=== PATIENT | male | born 1965 ===

== ENCOUNTER 2016-11-26 19:28 | Emergency (ER) | payer MEDICARE, MEDICAID ==
[2016-11-26 19:44] VITALS: BMI 23.6
[2016-11-26 19:48] VITALS: BP 156/87; TEMP 97.8
[2016-11-26 20:52] LABS: ADD MANUAL DIFF? NO
--- NOTE | 2016-11-26 21:01 | ED PDOC ---
Arrival/HPI - General Chief Complaint: Headache Time Seen by Provider: 11/26/16 19:51 Historian: Patient - History of Present Illness Narrative History of Present Illness (Text): 11/26/16 20:00 Gerson Lama is a 51 year old male, whose past medical history includes alcoholic cirrhosis with chronic ascites, liver transplant in 2016, hepatitis C , and nephrolithiasis, presents to the emergency department complaining of headache discomfort for past 2 weeks. States that headache is predominantly on the left side, and has been taking Tylenol for minimal symptomatic relief. Denies any fever, chills, dizziness, chest pain, shortness of breath, nausea, vomiting, diarrhea, or any other complaints at this time. Time/Duration: Other (2 weeks ) Severity Level: Mild Activities at Onset: Light Past Medical History - Provider Review Nursing Documentation Reviewed: Yes - Infectious Disease Hx of Infectious Diseases: None - Tetanus Immunization Tetanus Immunization: Unknown - Reproductive Currently : No - Cardiac Hx Cardiac Disorders: Yes Hx Heart Murmur: Yes - Pulmonary Hx Respiratory Disorders: Yes Hx Pneumonia: Yes - Neurological Hx Neurological Disorder: No - HEENT Hx HEENT Disorder: Yes Other/Comment: glasses - Renal Hx Renal Disorder: Yes Hx Neurogenic Bladder: Yes Hx Renal Failure: No - Endocrine/Metabolic Hx Endocrine Disorders: No - Hematological/Oncological Hx Blood Disorders: Yes Hx Anemia: Yes (blood transfusion) Hx Cirrhosis: Yes Hx Hepatitis C: Yes (hx of) Other/Comment: liver transplant in feb 2016 - Integumentary Hx Dermatological Disorder: No - Musculoskeletal/Rheumatological Hx Musculoskeletal Disorders: Yes Hx Arthritis: Yes Hx Back Pain: Yes Hx Falls: No Hx Unsteady Gait: Yes - Gastrointestinal Hx Gastrointestinal Disorders: Yes Hx Diverticulitis: Yes Hx Gall Bladder Disease: Yes (cholecystectomy) Hx Gastroesophageal Reflux: Yes Hx Liver Failure: Yes - Genitourinary/Gynecological Hx Genitourinary Disorders: Yes Hx Hematuria: Yes - Psychiatric Hx Psychophysiologic Disorder: Yes Hx Anxiety: Yes Hx Depression: Yes Hx Substance Use: No - Surgical History Hx Cholecystectomy: Yes Hx Orthopedic Surgery: Yes (left hip sx/ ankle sx) Other/Comment: RLQ hernia. Liver transplant. - Anesthesia Hx Anesthesia: Yes Hx Anesthesia Reactions: No Hx Malignant Hyperthermia: No - Suicidal Assessment Feels Threatened In Home Enviroment: No Family/Social History - Physician Review Nursing Documentation Reviewed: Yes Family/Social History: No Known Family HX Smoking Status: Former Smoker Hx Alcohol Use: No Hx Substance Use: No Substance used: cocaine Hx Substance Use Treatment: No Allergies/Home Meds Allergies/Adverse Reactions: Allergies diphenhydramine HCl [From Benadryl] Allergy (Verified 11/26/16 19:43) ITCHING Penicillins Allergy (Verified 11/26/16 19:43) ITCHING seafood Allergy (Uncoded 11/26/16 19:43) ANAPHYLAXIS Home Medications: Home Meds Medication Instructions Recorded Confirmed Ascorbic Acid [Vitamin C] 1 tab PO DAILY 11/26/16 11/26/16 Calcium Carbonate/Vitamin D3 1 tab PO BID 11/26/16 11/26/16 [[place] 500-Vit D3 200 Caplet] Magnesium Oxide [Magnesium] 400 mg PO DAILY 11/26/16 11/26/16 Multimineral/Multivitamin 1 tab PO DAILY 11/26/16 11/26/16 [Therapeutic-M Tab] Mycophenolate Mofetil [Cellcept] 750 mg PO BID 11/26/16 11/26/16 Sennosides [Senna] 2 tab PO HS 11/26/16 11/26/16 Tacrolimus [Prograf Cap] 5 mg PO BID 11/26/16 11/26/16 Tamsulosin [Flomax] 1 tab PO DAILY 11/26/16 11/26/16 Review of Systems - Physician Review All systems were reviewed & negative as marked: Yes - Review of Systems Constitutional: Normal. absent: Fatigue, Fevers Respiratory: Normal. absent: SOB, Cough, Sputum Cardiovascular: Normal. absent: Chest Pain, Palpitations Gastrointestinal: Normal. absent: Abdominal Pain, Diarrhea, Nausea, Vomiting Neurological: Headache. absent: Dizziness Physical Exam Vital Signs Reviewed: Yes Vital Signs Temp Pulse Resp BP Pulse Ox 11/26/16 19:48 97.8 F 94 H 19 156/87 H 98 Temperature: Afebrile Blood Pressure: Hypertensive Pulse: Regular Respiratory Rate: Normal Appearance: Positive for: Well-Appearing, Non-Toxic, Comfortable Pain Distress: None Mental Status: Positive for: Alert and Oriented X 3 - Systems Exam Head: Present: Atraumatic, Normocephalic Pupils: Present: PERRL Extroacular Muscles: Present: EOMI Conjunctiva: Present: Normal Mouth: Present: Moist Mucous Membranes Neck: Present: Normal Range of Motion Respiratory/Chest: Present: Clear to Auscultation, Good Air Exchange. No: Respiratory Distress, Accessory Muscle Use Cardiovascular: Present: Regular Rate and Rhythm, Normal S1, S2. No: Murmurs Abdomen: Present: Normal Bowel Sounds. No: Tenderness, Distention, Peritoneal Signs Upper Extremity: Present: Normal Inspection. No: Cyanosis, Edema Lower Extremity: Present: Normal Inspection. No: Edema Neurological: Present: GCS=15, CN II-XII Intact, Speech Normal, Motor Func Grossly Intact, Normal Sensory Function Skin: Present: Warm, Dry, Normal Color. No: Rashes Psychiatric: Present: Alert, Oriented x 3, Normal Insight, Normal Concentration Medical Decision Making ED Course and Treatment: 11/26/16 20:00 Impression: A 51 year old male who presents to the emergency department complaining of 2 week duration of left sided headache. Plan: -- CT Head -- Labs, Ammonia -- Reglan -- Reassess and disposition Progress Notes: 11/26/16 21:31 CT Head Without Intravenous Contrast Dictated and Authenticated by: Gera Sylvester MD FINDINGS: Brain: Minimal atrophy. No intracranial hemorrhage. No mass. No definite edema. Ventricles: No hydrocephalus. Bones/joints: No acute fracture. Soft tissues: Unremarkable. Sinuses: No acute sinusitis. Mastoid air cells: No mastoid effusion. Orbits: Unremarkable as visualized. IMPRESSION: 1. No acute intracranial abnormality. 2. Incidental/non-acute findings are described above. Re-evaluation Time: 23:00 Reassessment Condition: Re-examined, Improved - Lab Interpretations Lab Results: 11/26/16 20:43 11/26/16 20:43 Lab Results 11/26/16 21:10: Ammonia 18 11/26/16 20:43: Sodium 136, Potassium 4.4, Chloride 101, Carbon Dioxide 26, Anion Gap 13, BUN 20, Creatinine 0.8, Est GFR ( Amer) > 60, Est GFR (Non- Af Amer) > 60, Random Glucose 176 H, Calcium 9.3, Total Bilirubin 0.6, AST 28, ALT 27, Alkaline Phosphatase 97, Total Protein 7.1, Albumin 3.9, Globulin 3.2, Albumin/Globulin Ratio 1.2 11/26/16 20:43: WBC 6.2 D, RBC 3.58, Hgb 10.8 L, Hct 31.7 L, MCV 88.5, MCH 30.2 , MCHC 34.1, RDW 12.9, Plt Count 136, MPV 9.8, Gran % 83.5 H, Lymph % (Auto) 6.1 L, C[place]ay % (Auto) 7.2 H, Eos % (Auto) 3.2, Baso % (Auto) 0.0, Gran # 5.19, Lymph # 0.4 L, C[place]ay # 0.5, Eos # 0.2, Baso # 0.00 I have reviewed the lab results: Yes - RAD Interpretation Radiology Orders: 11/26/16 19:59 HEAD W/O CONTRAST [CT] Stat Rivet Sorter: Radiologist - Medication Orders Current Medication Orders: Discontinued Medications Metoclopramide HCl (Reglan) 10 mg IVP ONCE ONE Stop: 11/26/16 20:01 Last Admin: 11/26/16 20:47 Dose: 10 mg Oxycodone HCl (Oxycodone Immediate Release Tab) 5 mg PO STAT STA Stop: 11/26/16 21:14 Last Admin: 11/26/16 21:26 Dose: 5 mg Disposition/Present on Arrival - Present on Arrival Any Indicators Present on Arrival: No History of DVT/PE: No History of Uncontrolled Diabetes: No Urinary Catheter: No History of Decub. Ulcer: No History Surgical Site Infection Following: None - Disposition Have Diagnosis and Disposition been Completed?: Yes Diagnosis: Headache Disposition: HOME/ ROUTINE Disposition Time: 23:01 Condition: GOOD Discharge Instructions (ExitCare): Acute Headache (ED) Additional Instructions: follow up with pmd and neurology Referrals: Cornell Harris MD [Primary Care Provider] - Follow up with primary Ermias Francis MD [Staff Provider] - Follow up with primary Forms: Jongla (Korean)
[2016-11-26 21:04] LABS: EOS # 0.2 (0.0-0.7); EOS % 3.2 % (1.5-5.0); GRAN # 5.19 (1.4-6.5); GRAN % 83.5 % (50.0-68.0); HEMATOCRIT 31.7 % (42.0-52.0); LYMPH # 0.4 (1.2-3.4); LYMPH % 6.1 % (22.0-35.0); MEAN CELL VOLUME 88.5 fL (80.0-105.0); MEAN CORPUSCULAR HEMOGLOBIN 30.2 pg (25.0-35.0); MEAN CORPUSCULAR HGB CONC 34.1 g/dl (31.0-37.0); MEAN PLATELET VOLUME 9.8 fl (7.0-11.0); MONO # 0.5 (0.1-0.6); MONO % 7.2 % (1.0-6.0); PLATELET COUNT 136 10^3/uL (120.0-450.0); RED CELL DISTRIBUTION WIDTH 12.9 % (11.5-14.5); WHITE BLOOD COUNT 6.2 10^3/ul (4.5-11.0)
[2016-11-26 21:11] LABS: ALB/GLOB RATIO 1.2 (1.1-1.8); ALKALINE PHOSPHATASE 97 U/L (38-133); ALT/SGPT 27 U/L (7-56); AST/SGOT 28 U/L (15-59); BILIRUBIN,TOTAL 0.6 mg/dL (0.2-1.3); BLOOD UREA NITROGEN 20 mg/dL (7-21); CALCIUM 9.3 mg/dL (8.4-10.5); CARBON DIOXIDE 26 mmol/L (21-33); CHLORIDE 101 mmol/L (98-107); GFR AFRICAN-AMERICAN > 60; GLUCOSE,RANDOM 176 mg/dL (70-110); POTASSIUM 4.4 mmol/L (3.6-5.0); SODIUM 136 mmol/L (132-148); TOTAL PROTEIN 7.1 g/dL (5.8-8.3)
--- NOTE | 2016-11-26 21:12 | CT ---
EXAM: CT Head Without Intravenous Contrast CLINICAL HISTORY: 51 years old, male; Pain; Headache; Additional info: DURAN TECHNIQUE: Axial computed tomography images of the head/brain without intravenous contrast. This CT exam was performed using one or more of the following dose reduction techniques: automated exposure control, adjustment of the mA and/or kV according to patient size, and/or use of iterative reconstruction technique. COMPARISON: CT - HEAD W/O CONTRAST 04/29/2015 7:01:27 PM FINDINGS: Brain: Minimal atrophy. No intracranial hemorrhage. No mass. No definite edema. Ventricles: No hydrocephalus. Bones/joints: No acute fracture. Soft tissues: Unremarkable. Sinuses: No acute sinusitis. Mastoid air cells: No mastoid effusion. Orbits: Unremarkable as visualized. IMPRESSION: 1. No acute intracranial abnormality. 2. Incidental/non-acute findings are described above.
[2016-11-26] MEDS ORDERED: oxyCODONE 5 mg Immediate Release Tab PO STA (21:13)
[2016-11-26 23:13] VITALS: PULSE 96; RESP 18
[2016-11-26 23:16] VITALS: O2SAT 99
== END 2016-11-26 23:18 | disposition home or self-care (01) ==
LOC: ED 19:28
DX: R51 Headache (principal); D64.9 Anemia, unspecified
CPT/HCPCS: 70450; 80053; 82140; 85025; 96374; 99285; J2765